=== PATIENT | male | born 1940 | race Caucasian/White ===

== ENCOUNTER 2018-07-02 02:54 | Inpatient (IN) | payer MEDICARE, MEDICAID | END 2018-07-09 15:20 | LOC: ER 02:54 → PCU 3S 07-06 16:10 → ED HOLD 04:27 → PCU 3S 08:52 → ICU 2S 14:10 | PROC: 4A023N7 Measurement of Cardiac Sampling and Pressure, Left Heart, Percutaneous Approach (ICD-10-PCS; principal; ~2018-07-02) | PROC: 5A02210 Assistance with Cardiac Output using Balloon Pump, Continuous (ICD-10-PCS; ~2018-07-02) | PROC: 027034Z Dilation of Coronary Artery, One Artery with Drug-eluting Intraluminal Device, Percutaneous Approach (ICD-10-PCS; ~2018-07-02) | PROC: B2130ZZ Fluoroscopy of Multiple Coronary Artery Bypass Grafts using High Osmolar Contrast (ICD-10-PCS; ~2018-07-02) | DX: I21.4 Non-ST elevation (NSTEMI) myocardial infarction (principal); C22.0 Liver cell carcinoma; D62 Acute posthemorrhagic anemia; E87.6 Hypokalemia; E83.42 Hypomagnesemia ==

== ENCOUNTER 2018-08-18 18:46 | Inpatient (IN) | payer MEDICARE, MEDICAID | END 2018-08-24 18:24 | disposition home or self-care (01) | LOC: ORTHO 4S 08-19 01:20 → ER 18:46 → SUR 3N 08-20 14:05 → ICU 2S 08-19 19:04 | PROC: 04QL0ZZ Repair Left Femoral Artery, Open Approach (ICD-10-PCS; principal; 2018-08-19 15:46) | DX: I97.89 Other postprocedural complications and disorders of the circulatory system, not elsewhere classified (principal); C22.9 Malignant neoplasm of liver, not specified as primary or secondary; I72.4 Aneurysm of artery of lower extremity; I25.2 Old myocardial infarction ==